=== PATIENT | female | born 1970 | race Two or more races ===

== ENCOUNTER 2016-12-18 01:38 | Emergency (ER) | payer MEDICARE, MEDICAID ==
[~2016-12-18] VITALS: Ht 170.2 cm; Wt 81.6 kg
[2016-12-18] MEDS ORDERED: LORazepam 1mg tab ORAL ONE (02:00)
--- NOTE | 2016-12-18 02:28 | Emergency Room Report ---
History of Present Illness General Chief Complaint: General Complaint Source: Patient Present Illness HPI Is a 46-year-old female well-known to this ER. She's been here multiple time. She has a history of schizophrenia/schizoaffective disorder. She called 911 because she said she can't say at home. She said there was too much argument and she can't sleep. She denies any fever chills denies suicidal thought homicidal thought. Denies any other complaint. She wants a place to sleep. Allergies: Coded Allergies: No Known Allergies (Unverified , 12/18/16) Patient History Past Medical History: see triage record, old chart reviewed, schizophrenia Past Surgical History: other Family History: none Last Menstrual Period: UNKNOWN Now: No Immunizations: other Reviewed Nursing Documentation: PMH: Agreed, PSxH: Agreed Nursing Documentation-PMH Hx Hypertension: Yes Review of Systems ENT: Denies: sore throat Cardiovascular: Denies: chest pain, palpitations Gastrointestinal/Abdominal: Denies: diarrhea, nausea, vomiting Musculoskeletal: Denies: back problems Skin: Denies: rash Neurological: Denies: COREAS, seizures All Other Systems: negative except mentioned in HPI Physical Exam Vital Signs Date Time Temp Pulse Resp B/P Pulse Ox O2 Delivery O2 Flow Rate FiO2 12/18/16 01:31 98.8 86 18 132/90 98 Room Air vitals normal Sp02 EP Interpretation: reviewed, normal General Appearance: alert/responsive, no apparent distress, non-toxic Head: normocephalic, atraumatic Eyes: PERRL, EOMI, other - Patient is blind in the right eye ENT: oropharynx normal Neck: supple/symm/no masses Respiratory: effort normal, no rhonchi, no wheezing Cardiovascular: no murmur, gallop, rub Gastrointestinal: non-tender, no mass, non-distended, no rebound/guarding, normal bowel sounds Musculoskeletal: gait & station normal Neurologic: oriented x3, sensory intact, motor strength/tone normal Skin: no rash, normal palpation Medical Decision Making Diagnostic Impression: Primary Impression: Acute stress reaction ER Course Is presents with acute stress reaction. No evidence of suicidal thought homicidal thought. She has no criteria for the 5150. we'll discharge home. Last Vital Signs Date Time Temp Pulse Resp B/P Pulse Ox O2 Delivery O2 Flow Rate FiO2 12/18/16 01:31 98.8 86 18 132/90 98 Room Air Status: improved Disposition: HOME, SELF-CARE Condition: Stable Additional Instructions: followup with your psychiatrist within 7 days. Return if symptom worsen. MALA GAUTHIER M.D. Dec 18, 2016 02:28
[2016-12-18 05:09] VITALS: BP 91/52
[2016-12-18 06:21] VITALS: BP 91/52
== END 2016-12-18 06:24 | disposition home or self-care (01) ==
LOC: EDBD 01:38 → EMR 01:50
DX: F43.0 Acute stress reaction (principal); Z86.59 Personal history of other mental and behavioral disorders; I10 Essential (primary) hypertension; H54.41 Blindness, right eye, normal vision left eye
CPT/HCPCS: 99283

== ENCOUNTER 2016-12-20 02:15 | Emergency (ER) | payer MEDICARE, MEDICAID ==
[~2016-12-20] VITALS: Ht 160 cm; Wt 79.4 kg
[2016-12-20 03:08] LABS: BASOPHILS % (AUTO) 0.5 % (0.0-2.0); EOSINOPHILS % (AUTO) 0.8 % (0.0-3.0); LYMPHOCYTES % (AUTO) 40.8 % (20.0-45.0); MEAN CORPUSCULAR HEMOGLOBIN 30.5 PG (27.0-31.0); MEAN CORPUSCULAR HGB CONC 32.2 G/DL (32.0-36.0); MEAN CORPUSCULAR VOLUME 95 FL (80-99); MEAN PLATELET VOLUME 7.5 FL (6.5-10.1); MONOCYTES % (AUTO) 9.1 % (1.0-10.0); NEUTROPHILS % (AUTO) 48.9 % (45.0-75.0); PLATELET COUNT 323 K/UL (150-450); RED BLOOD COUNT 3.88 M/UL (4.20-5.40); RED CELL DISTRIBUTION WIDTH 11.6 % (11.6-14.8); WHITE BLOOD COUNT 10.9 K/UL (4.8-10.8)
[2016-12-20 03:10] LABS: APPEARANCE,URINE CLEAR; KETONES,URINE NEGATIVE (NEGATIVE); LEUKOCYTE ESTERASE ,URINE NEGATIVE (NEGATIVE); NITRITE,URINE NEGATIVE (NEGATIVE); PH,URINE 6.5 (4.5-8.0); PROTEIN,URINE NEGATIVE (NEGATIVE); UROBILINOGEN,URINE NORMAL MG/DL (0.0-1.0)
[2016-12-20 03:12] VITALS: BP 129/85
[2016-12-20 03:30] LABS: ACETAMINOPHEN < 10 ug/mL (10-30); ALANINE AMINOTRANSFERASE 10 U/L (3-33); ALBUMIN/GLOBULIN RATIO 1.2 (1.0-2.7); ALCOHOL < 10 mg/dL; ANION GAP 18 (5-15); ASPARTATE AMINO TRANSFERASE 18 U/L (5-40); CALCIUM 9.8 mg/dL (8.6-10.2); CARBON DIOXIDE 23 mEQ/L (20-30); CHLORIDE 97 mEQ/L (98-107); CREATININE 1.2 mg/dL (0.5-0.9); GLOMERULAR FILTRATION RATE 48.4 mL/min (>60); HEMOLYSIS 5; POTASSIUM 4.2 mEQ/L (3.4-4.9); SODIUM 138 mEQ/L (135-145); TOTAL PROTEIN 8.4 g/dL (6.6-8.7)
[2016-12-20 04:50] VITALS: BP 125/78
[2016-12-20 06:06] VITALS: BP 98/58
--- NOTE | 2016-12-20 06:29 | Emergency Room Report ---
History of Present Illness General Chief Complaint: Behavioral Complaint Source: Patient, Medical Record Present Illness HPI Patient is a 46-year-old female brought in by ambulance after increased difficulty sleeping and agitation. Patient denies any hallucinations. Patient states she's been taking her lithium. Patient had recently had a lithium level drawn. Patient was noted to have compliant with her medications. She denied any auditory hallucinations. She stated she hadn't been having difficulty sleeping. She had not been having any suicidal thoughts. She reported having a place to live. She denied other complaints. Allergies: Coded Allergies: No Known Allergies (Unverified , 12/18/16) Patient History Past Medical History: bipolar, other - eye blindness Past Surgical History: unable to obtain Last Menstrual Period: unk Reviewed Nursing Documentation: PMH: Agreed, PSxH: Agreed Nursing Documentation-PMH Hx Hypertension: Yes History Of Psychiatric Problem: Yes - BIPOLAR SCHIZO Review of Systems All Other Systems: negative except mentioned in HPI Physical Exam Vital Signs Date Time Temp Pulse Resp B/P Pulse Ox O2 Delivery O2 Flow Rate FiO2 12/20/16 02:00 98.1 96 16 136/98 100 Room Air Sp02 EP Interpretation: reviewed, normal General Appearance: alert/responsive, no apparent distress, GCS 15, non-toxic Head: atraumatic Eyes: PERRL, lids + conjunctiva normal, other - corneal scarring ENT: hearing intact, no angioedema Neck: supple/symm/no masses, no meningismus Respiratory: effort normal, no wheezing, chest symmetrical Cardiovascular: regular rate, rhythm, no edema Cardiovascular #2: 2+ carotid (R), 2+ carotid (L), 2+ dorsalis pedis (R), 2+ dorsalis pedis (L) Gastrointestinal: non-tender, no mass, non-distended, no rebound/guarding, normal bowel sounds Musculoskeletal: gait & station normal, strength & tone normal, normal ROM, non -tender Neurologic: oriented x3, sensory intact, normal speech Psychiatric: normal inspection, judgment & insight normal, memory normal, other Skin: no rash, well hydrated Lymphatic: normal inspection Medical Decision Making Diagnostic Impression: Primary Impression: Bipolar disorder ER Course Patient presented for had difficulty sleeping. Differential diagnosis included was not limited to substance abuse, bipolar disorder, melissa, among others. The patient was noted to be very calm and without pressured speech. Patient had a good plan for self care. Patient slept comfortably without medications. Patient subsequently discharged to home. She is advised to obtain outpatient psychiatric treatment. Last Vital Signs Date Time Temp Pulse Resp B/P Pulse Ox O2 Delivery O2 Flow Rate FiO2 12/20/16 06:06 98.0 89 15 98/58 98 Room Air Status: improved Disposition: HOME, SELF-CARE Condition: Stable Patient Instructions: Bipolar Disorder Juan A Terrazas Dec 20, 2016 06:29
[2016-12-20 06:33] VITALS: BP 98/58
== END 2016-12-20 06:33 | disposition home or self-care (01) ==
LOC: EDBD 02:15 → EMR 02:46
DX: F31.9 Bipolar disorder, unspecified (principal); F20.9 Schizophrenia, unspecified
CPT/HCPCS: 36415; 80053; 80178; 80300; 81003; 81025; 85025; 99284; G0480; 80329